=== PATIENT | male | born 1940 | race Caucasian/White ===

== ENCOUNTER 2020-07-30 06:12 | Observation (INO) ==
--- NOTE | 2020-07-26 10:57 | Anesthesiology Consultation ---
Date of Service July 26, 2020 Assessment & Plan (1) Encounter for pre-operative examination: Per assessment on 07/26: Travel screen negative. No known COVID-19 positive contacts or current COVID-19 related symptoms. Preop COVID test being done at [facility] 07/26- results pending. Chart Review Chart Review: Acceptable Risk for Surgery and Patient seen in Pre Admission Testing Teaching & Discussion Pre-Anesthesia Teaching/Discussion Notes: Instructed NPO after midnight before surgery,except medications with 15 cc of water. Medication instructions provided according to the [facility] guidelines. History Surgery Operation Date: 07/30/20 07:30 Proposed Procedures p Robotic Laparoscopic Assisted Radical Retropubic Prostatectomy, Possible Open, Possible Pelvic Lymph Node Dissection, Possible Suprapubic Tube Placement - Ashok Ceja MD Height/Weight Height: 5 ft 6 in Weight: 60.9 kg Allergies Allergy/AdvReac Type Severity Reaction Status Date / Time Finasteride TABS AdvReac Mild Elevated BP Uncoded 07/26/20 08:26 Medications Home Medications Medication Instructions Recorded Confirmed Last Taken levothyroxine 50 mcg tablet 50 mcg PO QAM tab 07/17/20 07/26/20 Unknown mzwgidud-tsh-vwcuo acid 300 1 tab PO QAM 07/17/20 07/26/20 Unknown mcg-lycopene 600 mcg-lutein 300 mcg tablet omega-3 fatty acids 1,000 mg 1,000 mg PO PM 07/17/20 07/26/20 Unknown capsule pomegranate fruit extract 250 mg 250 mg PO QAM cap 07/17/20 07/26/20 Unknown capsule turmeric (bulk) 95 % powder See Rx Instructions MISCELLANEOUS 07/17/20 07/26/20 Unknown .COMPLEX Pectasol-C 1 cap PO BID 07/26/20 07/26/20 Unknown Prostate Support 1 cap PO QAM 07/26/20 07/26/20 Unknown dutasteride 0.5 mg PO QAM 07/26/20 07/26/20 Unknown Past Medical History Medical History Benign prostatic hyperplasia with urinary obstruction Hypercholesterolemia Hypothyroidism Prostate cancer (06/10/20) Exercise / Class Metabolic Activity II 4-5 Yardwork/Stairs/Walk up hill Past Family History Family History Mother , Passed age 85 of unknown No problems noted. Father , age 96 of natural causes No problems noted. Brother , Passed age 85 of parkinson's disease complications No problems noted. Brother No problems noted. Brother No problems noted. Daughter No problems noted. Daughter No problems noted. Daughter No problems noted. Other No pertinent family history Past Surgical History Surgical History History of cataract surgery bilateral History of prostate biopsy (06/10/20) x2 Past Anesthesia History No Hx of Anesthesia Complications and No Family Hx of Anesthesia Complications History of PONV No Hx of PONV and No Hx of Motion Sickness Social History Smoking Status: Never smoker Do You Dip or Chew Tobacco: No Hx Alcohol Use: No Hx Substance Use: No Review of Systems Patient denies chest pain, shortness of breath, dyspnea on exertion, fever, chills, cough, wheezing, palpitations. Physical Exam Vital Signs VITALS BP 148/68 P 69 TEMP 98.4 SP02 98%RA RESP 16 PHYSICAL Full neck and c-spine range of motion. Full TMJ range of motion. TMD 2.5 finger breaths (small chin) Mallampati Score 3 Dentition: intact, possible crowns Lungs: clear throughout to auscultation Cardiac: regular rate and rhythm, no murmurs noted Spine: normal Carotid arteries: negative bruit Extremities: no edema Testing Laboratory Results 07/26/20 11:38 07/26/20 11:38 Urine Color Yellow 07/26/20 11:38 Urine Appearance Clear (Clear) 07/26/20 11:38 Urine pH 6.5 (4.5-7.5) 07/26/20 11:38 Ur Specific [place] 1.012 (1.000-1.030) 07/26/20 11:38 Urine Protein Negative (Negative) 07/26/20 11:38 Urine Glucose (UA) Negative (Negative) 07/26/20 11:38 Urine Ketones Negative (Negative) 07/26/20 11:38 Urine Nitrite Negative (Negative) 07/26/20 11:38 Ur Leukocyte Esterase Negative (Negative) 07/26/20 11:38 Electrocardiogram Date: 07/26/20 NSR at 63bpm. iRBBB. unconfirmed report. Chest X-Ray Date: 07/26/20
--- NOTE | 2020-07-26 12:07 | XRay Report ---
XR chest Pre-admission PA/Lat CLINICAL HISTORY: Preoperative chest COMPARISON STUDY: No previous studies for comparison. FINDINGS: The cardiac and mediastinal contours are normal. There is no evidence of focal pulmonary co nsolidation. There is no evidence of failure. No pleural effusions are visualized.[ IMPRESSION: No active disease in the chest. ACT 112: Negative or not required by law. Electronically signed by: Yunior Dueñas M.D. 07/26/2020 12:05 PM
[2020-07-26 12:09] LABS: Hematocrit (blood only) 39.4 % (42-52); Hemoglobin 13.4 g/dL (14.0-18.0); Lymphocytes % (auto) 21.2 %; Mean Corpuscular Hemoglobin 31.7 pg (25-34); Mean Corpuscular Volume 93.1 fL (80-100); Mean Platelet Volume 9.6 fL (7.4-10.4); Monocytes % (auto) 9.6 %; Neutrophils % (auto) 64.9 %; Platelet Count 202 K/uL (130-400); RDW Coefficient of Variation 12.6 % (11.5-14.5); RDW Standard Deviation 42.7 fL (36.4-46.3); Red Blood Count 4.23 M/uL (4.7-6.1); White Blood Count 5.95 K/uL (4.8-10.8)
[2020-07-26 12:10] LABS: Appearance Urine Clear (Clear); Basophils # (auto) 0.01 K/uL (0-0.2); Basophils % (auto) 0.2 %; Bilirubin Urine Negative (Negative); Blood Urine Negative (Negative); Color Urine Yellow; Eosinophils # (auto) 0.23 K/uL (0-0.5); Eosinophils % (auto) 3.9 %; Glucose Urine UA Negative (Negative); Immature Granulocytes # (auto) 0.01 K/uL (0.00-0.02); Immature Granulocytes % (auto) 0.2 %; Ketones Urine Negative (Negative); Leukocyte Esterase Urine Negative (Negative); Lymphocytes # (auto) 1.26 K/uL (1.2-3.4); Monocytes # (auto) 0.57 K/uL (0.11-0.59); Neutrophils # (auto) 3.87 K/uL (1.4-6.5); Nitrite Urine Negative (Negative); Protein Urine Negative (Negative); Specific Gravity Urine 1.012 (1.000-1.030); Urobilinogen Urine Negative (Negative); pH Urine 6.5 (4.5-7.5)
[2020-07-26 12:18] LABS: BUN Creatinine Ratio 23.6 (10-20); Calcium 9.4 mg/dl (8.5-10.1); Creatinine Clr Calc Pharmacy 68.8 ml/min; Est GFR (African American) 101.1; Est GFR (Non-African American) 87.2; Potassium 4.3 mmol/L (3.5-5.1)
--- NOTE | 2020-07-26 18:19 | Electrocardiogram Report ---
Test Reason : Blood Pressure : / mmHG Vent. Rate : 063 BPM Atrial Rate : 063 BPM P-R Int : 156 ms QRS Dur : 102 ms QT Int : 410 ms P-R-T Axes : 076 073 065 degrees QTc Int : 419 ms Normal sinus rhythm Incomplete right bundle branch block Borderline ECG No previous ECGs available Confirmed by Daniel Gomez ([id number]) on 07/26/2020 6:19:08 PM Referred By: Ashok Ceja Confirmed By:Jenaro Gomez
[~2020-07-30 06:12] MED LIST: HEPARIN SOD 5,000 UNIT/0.5 ML VIAL SQ SCH; LR 15ML/HR IV SCH
--- NOTE | 2020-07-30 07:09 | History & Physical Bridge Note ---
Date of Service July 30, 2020 History & Physical Bridge Note I have examined the patient, reviewed the History & Physical and in the interval since the performance of the History & Physical I have noted the following changes of clinical significance: no changes noted
[2020-07-30] MEDS ORDERED: PROPOFOL IV EMULSION 10 MG/ML 20 ML VIAL IV ONE (07:24)
[2020-07-30] MEDS ORDERED: DEXAMETHASONE SOD INJ 4 MG/ML VIAL ONE (07:24)
[2020-07-30] MEDS ORDERED: ONDANSETRON INJ 2 MG/ML 2 ML VIAL ONE (07:24)
[2020-07-30] MEDS ORDERED: LIDOCAINE HCL 2% 2 ML VIAL/AMP(20MG/ML) INFIL ONE (07:24)
[2020-07-30] MEDS ORDERED: GLYCOPYRROLATE 0.2 MG/ML VIAL ONE (07:24)
[2020-07-30] MEDS ORDERED: NEOSTIGMINE METHYLSULFATE 5 MG/5 ML SYR ONE (07:24)
[2020-07-30] MEDS ORDERED: fentaNYL citrate 100 MCG/2 ML VIAL ONE (07:25)
[2020-07-30] MEDS ORDERED: MEPERIDINE HCL 25 MG/ML CARP/VIAL IV PRN (07:33)
[2020-07-30] MEDS ORDERED: ATROPINE SULFATE 0.1 MG/ML 10ML SYR IV PRN (07:33)
[2020-07-30] MEDS ORDERED: ONDANSETRON INJ 2 MG/ML 2 ML VIAL IV PRN (07:33)
[2020-07-30] MEDS ORDERED: PHENYLEPHRINE 100MCG/ML 5ML SYR IV PRN (07:33)
[2020-07-30] MEDS ORDERED: LABETALOL HCL IV 5 MG/ML 20ML IV PRN (07:33)
[2020-07-30] MEDS ORDERED: ePHEDrine sulfate 50 MG/ML AMP IV PRN (07:33)
[2020-07-30] MEDS ORDERED: HYDROmorphone INJ 1 MG/ML SYRINGE IV PRN (07:33)
[2020-07-30] MEDS ORDERED: BUPIVACAINE 0.5 % 5 MG/1 ML MPF 30ML VIAL ONE (07:48)
[2020-07-30] MEDS ORDERED: ceFAZolin 2000MG 2,000 MG/15 ML SYR IV ONE (08:47)
[2020-07-30] MEDS ORDERED: ROCURONIUM BROMIDE 10 MG/ML 5 ML VIAL IV ONE (09:04)
[2020-07-30] MEDS ORDERED: FLOSEAL HEMOSTATIC MATRIX 10ML TOP ONE (10:31)
--- NOTE | 2020-07-30 11:16 | Operative Report ---
PG Post Operative Report Pre & Post Diagnosis Operation Date: 07/30/20 08:00 Pre-Op Diagnosis: PROSTATE CANCER Post-Op Diagnosis: PROSTATE CANCER I identified the patient and participated in the time-out.: Yes Procedure Operation Date: 07/30/20 08:00 Actual Procedures p Robotic Laparoscopic Assisted Radical Retropubic Prostatectomy, Pelvic Lymph Node Dissection(Not Applicable) - Ashok Ceja MD Surgeon Daniel Ceja MD Board Mixer Tender Whit Johnson Estimated Blood Loss 100 Findings Consistent with Post-Op Diagnosis Specimens 1. Periprostatic fat 2. Left pelvic lymph nodes 3. Right pelvic lymph nodes 4. Prostate and seminal vesicles Description of Procedure The patient was identified in the preoperative holding area, appropriate informed consents were reviewed and completed, and he was transported to the operating suite. Subcutaneous heparin was administered in the pre-operative holding area. Upon arrival in the operating suite, he received appropriate antibiotics and general anesthesia. He was positioned in dorsal lithotomy, a B&O suppository was inserted after digital rectal exam, and he was prepped and draped in standard fashion. A Browning catheter was inserted in the sterile field. A Veress needle was passed per umbilicus with uniform insufflation of the abdomen to 15mmHg. He was placed in steep Trendelenburg position. A periumbilical incision was then made to accommodate a 12mm Visiport with 10mm 0degree laparoscope. Inspection of the abdomen was carried out, and there was no evidence of traumatic entry or injury secondary to the Veress needle. After confirming a clear anterior abdominal wall, ports were subsequently placed in standard robotic prostatectomy fashion without incident. To begin the robotic portion of the case, the left lateral aspect of the sigmoid was mobilized off of the left pelvic side wall to allow the pouch of Ky to be appropriately visualized. I then made an incision in the pouch of Ky, overlying the seminal vesicles. Both SVs as well as the ampullae of the vasa were entirely dissected, with the vasa transected 3cm from the prostate. The medial umbilical ligaments were then controlled with bipolar electrocautery just inferior to the umbilicus. Following cauterization, they were divided utilizing monopolar cautery. A peritoneal incision was carried from this location to the medial aspect of the internal inguinal rings bilaterally with care to avoid opening through the ring. This incision was concluded when the va s deferens was reached. Dissection of the bladder and prostate off of the posterior aspect of the pubic arch was completed allowing full visualization of the prostate. The fat overlying the prostate was removed en bloc and passed off the table as a specimen labeled "periprostatic fat". The endopelvic fascia was cleared during this portion of the procedure, and subsequently opened - first on the right and then the left. The incision through the endopelvic fascia began near the prostate-bladder junction and was carried to the apex with extreme care to preserve all lateral levator musculature as well as the periurethral musculature and sphincter complex. I additionally preserved the puboprostatic ligaments. I then controlled the DVC with a 3-0 V-lock suture in overlapping/figure of 8 fashion. The lymph node dissection was then conducted. External iliac vessels were identified on the pelvic side wall. The packet of fat and lymphatic tissue that resides just under the iliac vein was elevated and off of the vein with a split and roll technique. The packet was dissected laterally to the circumflex vein and distally to the obturator nerve which was preserved. The proximal aspect of the packet was carried towards the bifurcation of the iliac vessels. A combination of monopolar and bipolar cautery were used to assist with control. After completing the dissection on both sides, the packets were collected and passed off of the table as specimens labeled "pelvic lymph nodes". My attention then returned to the prostate, with identification of the bladder neck aided by gentle traction on the Browning catheter and lateral to medial pressure at the presumed level of the bladder neck with the robotic instruments. An anterior cystotomy was made, the Browning balloon deflated and the catheter guided through the incision to allow anterior retraction. I attempted to preserve maximal bladder neck musculature as I circumferentially dissected around the bladder neck. After incision through the posterior aspect of the mucosa, the dissection was carried through detrusor muscle until the bilateral ampullae of the vasa were identified. The previously dissected vasa and SVs were brought through the incision and used to elevated the prostate anteriorly. A posterior plane behind the prostate was then developed - splitting Denonvilliers's fascia. This dissection was carried as far as possible towards the apex as well as far as possible laterally. An incision in the lateral prostatic fascia was then made bilaterally to facilitate control of the vascular pedicles and preservation of the nerve bundles. Aggressive nerve sparing was not performed because of the pathology. The pedicles were then controlled with a series of Weck clips. The apical attachments of the prostate were remaining at that stage. The DVC was divided after control with bipolar cautery over the prostate. Continuous inspection from anterior and lateral views allowed me to closely follow the apical contour of the prostate and maximally preserve urethral length and tissue. The prostate was entirely freed at that point, and collected in an EndoCatch bag before being moved out of the field of vision. Hemostasis was confirmed and anastomosis of the bladder and urethra was completed utilizing a double armed V- Lock stitch. A new Browning catheter was inserted and the anastomosis tested with irrigation. There was no evidence of leak. A eugenie style stitch was placed bilaterally to functionally marsupialize the area of the lymph node dissection. The robot was undocked, the specimen extracted through expansion of the michael- umbilical camera port. The fascia was closed with a series of 0-PDS figure of 8 stitches. The right chemist assistant port was closed in two layers - with a figure of 8 0-Vicryl to reapproximate the fascia followed by 4-0 Monocryl to close the skin. Monocryl was used to close all other skin incisions. All wounds were dressed with Dermabond. The case was concluded and the patient taken to the PACU in stable condition. Whit Johnson assisted from incision to closure and all parts in between. I attest to the content of the Intraoperative Record and any orders documented therein. Any exceptions are noted below.
[2020-07-30] MEDS: fentaNYL citrate 100 MCG/2 ML VIAL IV PRN ×4 (11:46→12:21)
--- NOTE | 2020-07-30 11:52 | Anesthesiology Progress Note ---
Date of Service July 30, 2020 Anesthesia Post Procedure Vital Signs Vital Signs: Temp Pulse Pulse Resp BP Pulse Ox 07/30/20 11:35 55 L 15 126/55 L 100 07/30/20 11:25 66 15 119/50 L 100 07/30/20 11:16 36.3 C L 63 17 125/52 L 100 07/30/20 07:03 36.0 C L 70 16 168/65 H 98 Transfer of Care Handoff Completed per policy Notes Mental Status: alert / awake / arousable Patient Amnestic to Procedure: Yes Nausea / Vomiting: adequately controlled Pain: adequately controlled Airway Patency, RR, SpO2: stable & adequate BP & HR: stable & adequate Hydration State: stable & adequate Anesthetic Complications: no major complications apparent and Pt Satisfied with anesthetic care
[2020-07-30] MEDS ORDERED: ePHEDrine sulfate 50 MG/ML SYR ONE (12:24)
[2020-07-30] MEDS ORDERED: oxyCODONE/ACETAMINOPHEN 5mg/325mg TAB PO PRN ×2 (12:55)
[2020-07-30] MEDS ORDERED: ACETAMINOPHEN 325 MG TAB PO PRN (12:55)
[2020-07-30 13:24] LABS: Hematocrit (blood only) 33.4 % (42-52); Mean Corpuscular Volume 94.1 fL (80-100); Mean Platelet Volume 10.1 fL (7.4-10.4); Platelet Count 189 K/uL (130-400); RDW Coefficient of Variation 12.7 % (11.5-14.5); RDW Standard Deviation 43.4 fL (36.4-46.3); Red Blood Count 3.55 M/uL (4.7-6.1); White Blood Count 10.27 K/uL (4.8-10.8)
[2020-07-30 13:25] LABS: Mean Corpuscular Hgb Conc 32.9 g/dL (32-36)
[2020-07-30 13:41] LABS: Calcium 8.4 mg/dl (8.5-10.1); Creatinine Clr Calc Pharmacy 61.6 ml/min; Est GFR (African American) 97.5; Est GFR (Non-African American) 84.1; Potassium 3.7 mmol/L (3.5-5.1)
[2020-07-30] MEDS: LACTATED RINGER'S 1,000 ML IV SCH ×2 (14:03→21:38)
[2020-07-30] MEDS: ceFAZolin 1000MG 1,000 MG/7.5 ML SYR IV SCH ×2 (15:57→23:13)
[2020-07-30] MEDS: DOCUSATE SODIUM 100 MG CAP PO SCH (20:21)
[2020-07-31] MEDS: LACTATED RINGER'S 1,000 ML IV SCH (05:24)
[2020-07-31] MEDS ORDERED: LEVOTHYROXINE SODIUM 50 MCG TABLET PO SCH (06:30)
[2020-07-31 08:17] LABS: Mean Corpuscular Hemoglobin 31.3 pg (25-34); Mean Corpuscular Hgb Conc 33.3 g/dL (32-36); Mean Corpuscular Volume 93.8 fL (80-100); Mean Platelet Volume 9.7 fL (7.4-10.4); Platelet Count 194 K/uL (130-400); RDW Coefficient of Variation 12.9 % (11.5-14.5); RDW Standard Deviation 44.2 fL (36.4-46.3); Red Blood Count 3.52 M/uL (4.7-6.1); White Blood Count 11.17 K/uL (4.8-10.8)
--- NOTE | 2020-07-31 08:20 | Urology Progress Note ---
Date of Service July 31, 2020 Assessment & Plan (1) Prostate cancer: POD# 1 sp prostatectomy doing very well ambulate advance diet plan for d/c home after lunch Admission and Anticipated Discharge Date Admission Date: July 30, 2020 Subjective Doing quite well overall no major issues ambulated tolerating clears - asking for more food anxious to go home Physical Exam Physical Exam: incisions appropriate abd soft urine clear Results & Data ([facility]) Vital Signs (Past 12 Hours) Vital Signs Temp Pulse Resp BP Pulse Ox 07/31/20 03:53 37.1 C 69 17 123/57 L 96 07/30/20 23:47 36.6 C 71 18 108/49 L 97 07/30/20 20:23 36.6 C 67 16 123/60 96 PG Care Time/CCT Total # of Minutes Spent Total Time Spent with Patient: Total time spent is greater than 50% in coordination of care (as documented) at patient's floor/unit and/or counseling patient: Coding Level of Care Code None Diagnoses Prostate cancer C61
[2020-07-31 08:47] LABS: BUN Creatinine Ratio 15.5 (10-20); Calcium 8.6 mg/dl (8.5-10.1); Creatinine Clr Calc Pharmacy 63.9 ml/min; Est GFR (Non-African American) 85.4
[2020-07-31] MEDS: DOCUSATE SODIUM 100 MG CAP PO SCH (09:43)
--- NOTE | 2020-08-01 10:29 | Discharge Summary ---
Date of Service August 01, 2020 Principal Diagnosis Prostate cancer Discharge Data Allergies Allergy/AdvReac Type Severity Reaction Status Date / Time Finasteride TABS AdvReac Mild Elevated BP Uncoded 07/30/20 06:58 Procedures Performed Operation Date: 07/30/20 08:00 Actual Procedures p Robotic Laparoscopic Assisted Radical Retropubic Prostatectomy, Pelvic Lymph Node Dissection(Not Applicable) - Ashok Ceaj MD Hospital Course (1) Prostate cancer: Patient admitted for a robotic prostatectomy - details of the procedure as dictated previously in my operative report - in summary, he tolerated the procedure very well - he was in stable condition overnight with appropriate urine output and stable labs - he was subsequently discharged home with a duvall catheter - he was in stable condition at the time of discharge Total Time Total Time Spent Total Time Spent (In Minutes): 15 Total Time Includes: Examination of the Patient and Discharge Planning Discharge Plan Discharge Items Patient Disposition: Home - Self-Care Reason For Visit: PROSTATE CANCER Discharge Diagnosis: Prostate Cancer Activity: Per Instructions section Lifting: No more than 10 pounds Bathing Comment: No tub baths, okay to shower tonight. Sexual Activity: Wait until after follow-up appointment Exercise/Sports: Wait until after follow-up appointment Driving/Machine Use: Do not drive while on narcotic pain medication Non-emergency contact: Surgeon and Urologist Call non-emergency contact if: your pain is not controlled, your pain is unusual for you, your temperature is above 101, your wound has increased redness, your wound has increased drainage and your wound pain has increased Follow-up/Referrals: Ashok Ceja MD [Physician] - 08/14/20 11:00 am Alec Nguyen [Primary Care Provider] - Urology,Nurse [FAKE FOR SCHEDULES] - 08/05/20 10:30 am Diet: Regular Addtl Attending Provider Instructions: Please take all medications as prescribed and keep all follow-ups as scheduled. Please call our office at [phone] with any questions, concerns or need to reschedule appointments for any reason. We are happy to assist you We have sent an antibiotic to your pharmacy of choice. Please begin antibiotic as prescribed the day BEFORE your scheduled voiding trial at [facility]. Please continue antibiotic every 12 hours through the day AFTER your voiding trial. Activity: We recommend having someone with you for the first few days after surgery to help care for you. For the first 2 weeks after surgery, we would like you to get up and walk around your house. However, we recommend limit physical activity that would increase your heart rate. This will allow your body to rest and heal. Take naps if you feel tired. Don't lift anything heavier than 10 pounds, mow the law or ride a bicycle until your follow-up appointment. Please avoid long car rides. Home Care: Unless directed otherwise, drink 6 to 8 glasses of water a day (enough to keep your urine light colored). This will also help keep a healthy flow of urine. We recommend using a stool softener for the first two weeks to avoid constipation. Duvall Catheter or Suprapubic Catheter care: Keep the catheter well secured with either a leg back or leg strap with large bag. Empty your bag when it's about half full. You may notice some blood in the bag. This is normal after surgery and while the catheter is in place. Use mild soap (such as Dove or Dial) and water to wash the catheter and the head of your penis daily, or more frequently if needed. Return to your normal diet, we encourage good protein intake to promote healing. You may shower as normal. Please avoid tub baths or soaking until catheter removed and incisions well healed. Wearing sweat pants while you have the catheter is recommended, they will be more comfortable. Follow-up Your follow up appointments for having your catheter removed, and follow up with your physician should already be scheduled. If you have any questions regarding this, please contact our office. Your final pathology report will be discussed at your physician follow-up appointment. Call [facility] at [phone] right away if you have any of the following: Chest pain or trouble breathing (call [phone] or go to the hospital) Fever of 101F or higher, uncontrolled vomiting Heavy bleeding, clots, or bright red blood from the catheter Catheter that falls out or stops draining Foul-smelling discharge from your catheter Redness, swelling, warmth, or increased pain at your incision site Drainage, pus, or bleeding from your incision Pending Studies at Discharge: Yes Studies:: Pathology Stand-Alone Forms: My [facility] [employer], Smoking Cessation Medications and DC Order Prescriptions: New ciprofloxacin HCl 500 mg tablet 500 mg PO BID 3 Days Qty: 6 RF: 0 oxycodone-acetaminophen [Percocet] 5-325 mg tablet 1 tab PO TID PRN (Reason: pain) Qty: 14 RF: 0 docusate sodium [Colace] 100 mg capsule 100 mg PO BID Qty: 60 RF: 0 Continued Centrum Silver Men 300-600-300 mcg tablet 1 tab PO QAM RF: 0 omega-3 fatty acids 1,000 mg capsule 1,000 mg PO PM RF: 0 pomegranate fruit extract 250 mg capsule 250 mg PO QAM RF: 0 Curcumin 95 % powder See Rx Instructions miscellaneous .COMPLEX RF: 0 levothyroxine 50 mcg tablet 50 mcg PO QAM RF: 0 Pectasol-C 1 cap PO BID RF: 0 Prostate Support 1 cap PO QAM RF: 0 Discontinued dutasteride 0.5 mg capsule 0.5 mg PO QAM RF: 0 Discharge Orders: Discharge Order (Routine); Ordered 07/31/20 Ordered By: Olamide Jamil/Other Patient Handouts: Radical Prostatectomy Dc, Indwelling Urinary Catheter Dc, Discharge Instructions Caring for ... Admission Data Admit Date/Time: 07/30/20 11:26 Attending Provider: Ashok Ceja Admit Provider: Ashok Ceja Primary Care Provider: Alec Nguyen Other Interventions: Discharge Summary Assessment (RN) Last Done: 07/31/20 12:46 Coding Level of Care Code D/C Day Management <30 mins Diagnoses Prostate cancer C61
== END 2020-07-31 14:38 | disposition home or self-care (01) ==
LOC: ASU 06:12 → 3N 11:26 → INTOOBSV 11:26